=== PATIENT | male | born 1950 | race Caucasian/White ===

== ENCOUNTER 2021-11-25 07:38 | Outpatient (CLI) | payer MEDICARE, BC, SELFPAY ==
--- NOTE | 2021-12-20 15:23 | WPDSLEEPSTUD ---
Sleep Study Date of Study: 11/25/21 Ordering Provider: Maged Jin MD Interpreting Physician: Shakira Edwards DO Sleep Study Type: CPAP Titration Height: 1.85 m Weight: 137.438 kg Body Mass Index: 39.9 Neck Circumference (inches): 18 Alva: 4 Reason for Sleep Study Unrefreshing sleep despite being compliant with PAP Therapy. He is currently on CPAP 10 cm H2O with an EPR of 3. Sleep History The patient is a 71-year-old male with hypertension, coronary artery disease, congestive heart failure, lung nodule, ERICK on CPAP, history of colon resection x3, history of myocardial infarctions, history of CABG in 2002 and history of multiple angioplasties. the patient occasionally awakens from sleep short of breath. He denies awakening at night with heartburn, belching or cough. He constantly snores loud enough that others complain. He rarely has trouble sleeping when he has a cold. He denies waking up gasping for air throughout the night. He occasionally has breathing problems at night observed by himself or others. He denies sweating excessively at night. He constantly has heart palpitations or irregular heartbeats during the night. He denies falling asleep during the day and while driving. He denies sleep paralysis, cataplexy and hypnagogic / hypnopompic hallucinations. He denies having trouble at school or work due to sleepiness. He rarely has nightmares. He denies remembering his dreams. He frequently has thoughts racing through his mind. He denies feeling sad or depressed. He rarely has anxiety. He occasionally has muscular tension. He denies noticing parts of his body jerk. He frequently kicks during the night. He denies having crawling and aching feelings in his legs but will occasionally experience leg pain during the night. He rarely grinds his teeth during sleep but never awakens with morning jaw pain. He is constantly bothered by pain during the day and constantly awakened by pain during the night. He occasionally wakes up feeling stiff in the morning. He occasionally wakes up with sore achy muscles. He rarely wakes up with pain in the neck, spine and other joints. He goes to bed between 10 to 10:30 p.m. on both weekdays and weekends. It takes him 15-30 minutes to fall asleep. He wakes up 1-2 times throughout the night to use the restroom. He can fall back asleep within 5-10 minutes. He wakes up at 7:00 a.m. on weekdays and around 8-830 a.m. on the weekends. He typically gets 7-8 hours of sleep per night. He will stay in bed for 5-10 minutes after waking up in the morning. He currently lives with his . He does not consume any caffeinated beverages within 2 hours of bedtime. He does not engage in physical exercise before bedtime. He denies reading or watching television before falling asleep. He denies taking naps in the afternoon or the evening. He drinks 5-8 caffeinated beverages per day. He denies tobacco, alcohol and recreational drug use. [facility] Past Medical History Medical History Colon abnormality Heart disease Hypertension Surgical History Surgical History Angioblastoma History of colon surgery History of heart artery stent Family History Family History Father Heart disease Mother Heart disease Social History Social History Smoking status: Never smoker Medications Home Medications Medication Instructions Recorded Confirmed Type acetaminophen 500 mg capsule 500 mg PO Q6H PRN 09/07/21 History albuterol sulfate 90 mcg/actuation 2 puff inhalation Q4H PRN 09/07/21 History aerosol inhaler aspirin 81 mg tablet,delayed 81 mg PO DAILY 09/07/21 History release bumetanide 2 mg tablet 2 mg PO BID 09/07/21 History cetirizine 10 mg tablet
[2021-12-20 20:58] VITALS: BMI 39.9
--- NOTE | 2022-05-05 09:21 | SLEEP ---
Pt has turned machine down to 13cm. He is having issues with mask. He has to pull it so tight it is causing pain.
== END 2021-11-26 06:44 | disposition home or self-care (01) ==
LOC: ANHCSM 07:44
PROVIDERS: Visit Provider Internal Medicine Pulmonary Disease
DX: G47.33 Obstructive sleep apnea (adult) (pediatric) (principal)
CPT/HCPCS: 95811

== ENCOUNTER 2021-12-19 07:32 | Outpatient (CLI) | payer MEDICARE, SELFPAY ==
--- NOTE | ~2021-12-19 | XR_ITS ---
XR chest 2V 12/19/2021 09:40 Indication: Shortness of breath Procedure: 2 view chest Comparison: No prior studies for comparison. Findings: Status post median sternotomy for CABG. Heart size normal. There are right basilar infiltra mac. There are multiple healed left rib fractures. No acute osseous abnormality. Impression: 1: Right basilar infiltrates may represent atelectasis or developing pneumonia. Reviewed, dictated and finalized at location A. Impression: 1: Right basilar infiltrates may represent atelectasis or developing pneumonia.
--- NOTE | 2021-12-19 07:57 | ECHO_ITS ---
Patient Info Name: Christ Dickinson Age: 71 years : 1950 Gender: Male Ht: 73 in Wt: 306 lbs BSA: 2.73 m2 HR: 51 bpm BP: 131 / 70 mmHg Technical Quality: Good Exam Date: 12/19/2021 9:08 AM Exam Location: [facility] Patient Status: Outpatient Admit Date: 12/19/2021 Staff Ordering Physician: Maged Jin MD Toll Gate Keeper: Lilibeth Gonzalez RDCS Attending Provider: Maged Jin MD Referring Physician: Annabel MÉNDEZ; Exam Type: CA echo doppler color flow Study Info Indications - heart failure unspecified Complete two-dimensional, color flow and Doppler transthoracic echocardiogram is performed. Summary 1. Complete two-dimensional, color flow and Doppler transthoracic echocardiogram is performed. 2. Left ventricular chamber dimension is moderately enlarged. 3. Left ventricular systolic function is normal, estimated at 60-65%. 4. The left ventricular diastolic function is normal. 5. E/e' 9 is minimally elevated. 6. Left atrial chamber dimension is mildly enlarged. 7. Right atrial chamber dimension is mildly enlarged. 8. There is mild tricuspid valve regurgitation. 9. No pulmonary hypertension, estimated pulmonary arterial systolic pressure is 25 mmHg. Left Ventricle E/e' 9 is minimally elevated. Left ventricular chamber dimension is moderately enlarged. Left ventricular systolic function is normal, estimated at 60-65%. The left ventricular diastolic function is normal. Right Ventricle Right ventricular chamber dimension is normal. Right ventricular systolic function is normal. Left Atria Left atrial chamber dimension is mildly enlarged. Right Atria Right atrial chamber dimension is mildly enlarged. Aortic Valve The aortic valve is trileaflet. There is no aortic valve stenosis. There is no aortic valve regurgitation. Pulmonic Valve There is no pulmonic regurgitation. Mitral Valve There is no mitral valve stenosis. There is no mitral valve regurgitation. Tricuspid Valve There is mild tricuspid valve regurgitation. No pulmonary hypertension, estimated pulmonary arterial systolic pressure is 25 mmHg. Pericardium/Pleural There is no pericardial effusion. Inferior Vena Cava Normal inferior vena cava with >50% collapse upon inspiration consistent with normal right atrial pressure, 5 mmHg. Aorta The aortic root size at the sinus of Valsalva is normal. Left Ventricular Outflow Tract Name Value Normal LVOT 2D LVOT Diameter 2.1 cm LVOT Doppler LVOT Peak Gradient 3 mmHg LVOT Mean Gradient 2 mmHg LVOT VTI 22 cm LVOT VTI/AV VTI Ratio 0.9 LVOT Stroke Volume 79 ml LVOT CO 13.8 l/min LVOT CI 5.1 l/min/m2 Pulmonic Valve Name Value Normal PV Doppler ------
[2021-12-19 09:42] LABS: Basophils Absolute Auto 0.1 K/mm3 (0.0-0.1); Basophils Percent Auto 1.6 % (0.2-1.2); Eosinophils Absolute Auto 0.6 K/mm3 (0-0.3); Eosinophils Percent Auto 7.2 % (0-4.4); Hematocrit 44.7 % (42.0-52.0); Hemoglobin 14.6 g/dL (14.0-18.0); Immature Granulocyte Absolute 0.11 K/mm3 (0.00-0.031); Immature Granulocyte Percent A 1.3 % (0-0.5); Lymphocytes Absolute Auto 2.57 K/mm3 (0.9-3.2); Lymphocytes Percent Auto 29.5 % (18.3-44.2); Mean Corpuscular HGB Conc 32.7 g/dl (32-36); Mean Corpuscular Hemoglobin 31.3 pg (26-34); Mean Corpuscular Volume 95.7 fl (80-100); Mean Platelet Volume 10.4 fl (7.4-10.4); Monocytes Absolute Auto 1.1 K/mm3 (0.1-0.6); Monocytes Percent Auto 12.2 % (2.6-8.5); Neutrophils Absolute Auto 4.2 K/mm3 (1.3-6.7); Neutrophils Percent Auto 48.2 % (45.5-73.1); Platelet Count Result 201 k/mm3 (150-375); Red Blood Count 4.67 M/mm3 (4.6-6.20); Red Cell Distribution Width 12.9 % (11.5-14.5); White Blood Count 8.7 K/mm3 (4.5-10.0)
[2021-12-19 09:55] LABS: Anion Gap 8 mmol/L (8-16); Blood Urea Nitrogen 23 mg/dL (9-20); Calcium 9.5 mg/dL (8.4-10.2); Carbon Dioxide 31 mmol/L (22-30); Chloride 97 mmol/L (98-107); Estimated Glomerular Filt Rate 60; Glucose 96 mg/dL (65-110); Sodium 136 mmol/L (137-145)
--- NOTE | 2021-12-19 15:02 | WPDSIXMINUTE ---
Six Minute Walk Procedure Procedure Performed Pulmonary Stress Test (6 min walk) Six Minute Walk Six Minute Walk: This is a 6 minute walk test. The test was performed and interpreted in accordance with the 2014 ERS/ATS task force guidelines. Findings: The patient's resting room air oxygen saturation measured by pulse oximetry was 98% and heart rate was 50 bpm. Patient ambulated for 366 meters and oxygen saturation remained 97 to 100%. Heart rate at the end of the study was 77 bpm. The patient did not qualify for supplemental oxygen at rest or with ambulation. There are no prior studies for comparison.
== END 2021-12-19 07:33 | disposition home or self-care (01) ==
PROVIDERS: Visit Provider Internal Medicine Pulmonary Disease
DX: R06.00 Dyspnea, unspecified (principal); I50.9 Heart failure, unspecified; R91.8 Other nonspecific abnormal finding of lung field; I36.1 Nonrheumatic tricuspid (valve) insufficiency
CPT/HCPCS: 36415; 71046; 80048; 85025; 93306; 94618